=== PATIENT | male | born 1995 | race Caucasian/White ===

== ENCOUNTER → 2018-12-29 15:40 | Outpatient (CLI) | payer OTHER, SELFPAY ==
[2018-12-29 17:48] LABS: Absolute Lymphocyte Count 2.89 X10^3/ul (0.83-4.51); Absolute Neutrophil Count 6.6 X10^3/uL (2.0-7.7); Hematocrit 46.1 % (40-54); Hemoglobin 16.5 g/dl (13.0-16.5); Lymphocyte # 2.89 X10^3/ul (4.0); Lymphocyte % 27.7 % (19-41); Mean Corp Hgb Conc 35.8 g/gl (32-36); Mean Corpuscular Hgb 31.9 pg (27.0-32.0); Mean Corpuscular Volume 89.2 fL (80-94); Monocyte# 0.96 X10^3/uL; Monocyte% 9.2 % (0-10); Neutrophil # 6.56 X10^3/uL (2.7-7.7); Platelet Count 260 K/mm3 (150-450); RBC Distribution Width CV 12.4 % (11.6-14.6); RBC Distribution Width SD 39.8 fl (35.1-43.9); Red Blood Count 5.17 M/mm3 (4.6-6.2); White Blood Count 10.4 K/mm3 (4.4-11.0)
[2018-12-29 17:51] LABS: Amphetamine Urine VISTA NEGATIVE (<1000 ng/mL); Barbiturate Urine VISTA NEGATIVE (< 200 ng/mL); Benzodiazepine Urine VISTA NEGATIVE (< 200 ng/mL); Cocaine Urine VISTA NEGATIVE (< 300 ng/mL); Ecstacy Urine VISTA NEGATIVE (< 500 ng/mL); Methadone Urine VISTA NEGATIVE (< 300 ng/mL); PCP Urine VISTA NEGATIVE (< 25 ng/mL); THC Urine VISTA POSITIVE (< 50 ng/mL); Vista UDS pH Range 5
[2018-12-29 18:01] LABS: POSITIVE COUNT NO; POSITIVE DIFFERENTIAL NO; POSITIVE MORPHOLOGY NO
[2018-12-29 18:12] LABS: ALB/GLOB Ratio 1.6 RATIO (0.9-2.4); AST(SGOT) 18 U/L (15-37); Alanine Aminotransfer ALT/SGPT 26 U/L (16-61); Albumin, Serum 5.3 g/dL (3.2-5.0); Alkaline Phosphatase 78 U/L (45-117); Anion Gap 18 (5-15); BUN 13 mg/dL (7-18); BUN/Creat Ratio 14.3 RATIO (10-20); Chloride 93 mmol/L (98-107); Creatinine, Serum 0.91 mg/dL (0.70-1.30); EST Glomerular Filtration Rate 111 mL/min (>60); Est Glom Filt Rate - Afr Amer 134 mL/min (>60); Free T3 3.9 pg/mL (2.18-3.98); Globulin 3.3 g/dL (2.2-4.2); Glucose 82 mg/dL (74-106); Potassium 3.2 mmol/L (3.5-5.1); Protein, Total 8.6 g/dL (6.4-8.2); Sodium Level 134 mmol/L (136-145); T4 Free Direct 2.49 ng/dL (0.76-1.46); Thyroid Stim Hormone (TSH) 0.45 uIU/mL (0.358-3.74)
[2019-01-02 16:07] LABS: ASO Titer 52.8 IU/mL (0.0-200.0)
[2019-01-03 11:25] LABS: Anti-Thyroglobulin AB < 1.0 IU/mL (0.0-0.9); Thyroid Peroxidase AB 7 IU/mL (0-34)
== END ==
PROVIDERS: Family Provider Family Medicine; PCP Family Medicine; Referring Provider Family Medicine; Visit Provider Family Medicine
DX: F41.0 Panic disorder [episodic paroxysmal anxiety] (principal)
CPT/HCPCS: 36415; 80053; 80307; 84432; 84439; 84443; 84481; 85025; 86060; 86376; 86800